=== PATIENT | female | born 1940 | race African-American/Black ===

== ENCOUNTER 2016-11-03 23:01 | Emergency (ER) | payer MEDICARE, OTHER ==
[~2016-11-03] VITALS: Ht 170.2 cm; Wt 96.0 kg
[2016-11-03] MEDS ORDERED: TRAM50TA4 PO (23:10)
[2016-11-03] MEDS ORDERED: FERR-89 PO (23:10)
[2016-11-03] MEDS ORDERED: AMLO-511 PO (23:10)
[2016-11-04] MEDS ORDERED: TraMADol HCL 50 MG TABLET PO ONE (01:30)
[2016-11-04 02:35] VITALS: BP 133/75
== END 2016-11-04 02:36 | disposition home or self-care (01) ==
LOC: EMS 23:02
DX: S46.002A Unspecified injury of muscle(s) and tendon(s) of the rotator cuff of left shoulder, initial encounter (principal); K21.9 Gastro-esophageal reflux disease without esophagitis; M54.2 Cervicalgia; I10 Essential (primary) hypertension; X58.XXXA Exposure to other specified factors, initial encounter; Y93.89 Activity, other specified; Y92.89 Other specified places as the place of occurrence of the external cause; Y99.8 Other external cause status
CPT/HCPCS: 93005; 99284